=== PATIENT | male | born 1995 | race Caucasian/White ===

== ENCOUNTER 2019-08-17 15:28 | Emergency (ER) | payer OTHER ==
[~2019-08-17] VITALS: Ht 177.8 cm; Wt 90.7 kg
[2019-08-17 15:30] VITALS: BP 148/93
--- NOTE | 2019-08-17 15:30 | NUR ---
ED Nurse Note: Patient arrived to ED from sober living. Staff state that patient had a witnessed seizure that lasted approximately 2 min. They state that patient is on a detox regimen from opiates and that he has been faking to get more opiate medications to decrease his withdrawal symptoms. Patient is verbally hostile, demanding that he receive opiates from the ED physicians. Patient is AxO x 4, states he is having seizures because he is not receiving enough withdrawal medication. No complaints of pain. Patient on the site monitor, bed in lowest position. Addendum: 08/17/19 at 1951 by HEBERT Amendment undone in EDM - 08/17/19 at 1953 by HEBERT ED Nurse Note: Seizure precautions put into place. Side rails padded, all belongings placed away from patient for safety. No s/s of drowsiness or altered consciousness. No evidence of trauma from fall or other injury from previous seizure. Patient states he did not fall or injure himself earlier when he had the seizure.
[2019-08-17] MEDS ORDERED: LORazepam Inj 2mg/ml 1ml IV ONE ×2 (16:00→17:15)
[2019-08-17 16:41] LABS: EOSINOPHILS % (AUTO) 2.2 % (0.0-3.0); HEMATOCRIT 41.3 % (42.0-52.0); HEMOGLOBIN 13.6 G/DL (14.2-18.0); MEAN CORPUSCULAR VOLUME 85 FL (80-99); MONOCYTES % (AUTO) 7.1 % (1.0-10.0); NEUTROPHILS % (AUTO) 48.6 % (45.0-75.0); PLATELET COUNT 240 K/UL (150-450); RED BLOOD COUNT 4.86 M/UL (4.70-6.10); RED CELL DISTRIBUTION WIDTH 9.6 % (11.6-14.8); WHITE BLOOD COUNT 6.7 K/UL (4.8-10.8)
[2019-08-17 16:51] LABS: ANION GAP 7 mmol/L (5-15); BLOOD UREA NITROGEN 14 mg/dL (7-18); CALCIUM 8.5 MG/DL (8.5-10.1); CARBON DIOXIDE 28 MMOL/L (21-32); CHLORIDE 106 MMOL/L (98-107); CREATININE 1.1 MG/DL (0.55-1.30); POTASSIUM 3.8 MMOL/L (3.5-5.1); SODIUM 141 MMOL/L (136-145)
--- NOTE | 2019-08-17 16:51 | NUR ---
ED Nurse Note: sussy leigh (caregiver) - call Coby HARRELL in regards to discharge for pt. [phone]
[2019-08-17 17:01] LABS: ALANINE AMINOTRANSFERASE 95 U/L (12-78); ALBUMIN 3.4 G/DL (3.4-5.0); ALKALINE PHOSPHATASE 40 U/L (46-116); ASPARTATE AMINO TRANSFERASE 46 U/L (15-37); BILIRUBIN,TOTAL 0.4 MG/DL (0.2-1.0)
[2019-08-17 17:15] VITALS: BP 148/93
[2019-08-17] MEDS ORDERED: ATIVAN1 MG ORAL (17:15)
--- NOTE | 2019-08-17 17:15 | NUR ---
ED Nurse Note: Patient cleared for DC by Dr. Ambrose. Patient AxO x 4, no s/s of acute distres. IV removed, ID band removed. Rx given to patient. Patient walks with steady gait and has all belongings.
--- NOTE | 2019-08-17 23:02 | Emergency Room Report ---
History of Present Illness General Chief Complaint: Seizure Source: Patient Present Illness HPI 23-year-old male presents ED status post seizure. Coming from rehab facility. Seizure witnessed by staff. Full tonic-clonic. Lasted for 2 minutes. No reported head injury. Upon arrival patient states that he is withdrawing from benzos and alcohol. Does not take seizure medications. Feels anxious at this time. Denies any headaches, nausea or vomiting. Denies neck stiffness fevers or chills. No other aggravating relieving factors. Denies any other associated symptoms Allergies: Coded Allergies: AZITHROMYCIN (Verified Allergy, Unknown, 08/17/19) LEVETIRACETAM (Verified Allergy, Unknown, 08/17/19) Patient History Past Medical History: none Past Surgical History: none Pertinent Family History: none Social History: Reports: alcohol use, drug use; Denies: smoking Immunizations: UTD Reviewed Nursing Documentation: PMH: Agreed; PSxH: Agreed Nursing Documentation-PMH Past Medical History: No History, Except For Hx Seizures: Yes Review of Systems All Other Systems: negative except mentioned in HPI Physical Exam Vital Signs Date Time Temp Pulse Resp B/P (MAP) Pulse Ox O2 Delivery O2 Flow Rate FiO2 08/17/19 15:23 98.6 104 18 148/93 (111) 99 Room Air Sp02 EP Interpretation: reviewed, normal General Appearance: no apparent distress, alert, GCS 15, non-toxic Head: normocephalic, atraumatic Eyes: bilateral eye normal inspection, bilateral eye PERRL ENT: hearing grossly normal, normal pharynx, no angioedema, normal voice Neck: full range of motion, supple/symm/no masses Respiratory: chest non-tender, lungs clear, normal breath sounds, speaking full sentences Cardiovascular #1: regular rate, rhythm, no edema Cardiovascular #2: 2+ carotid (R), 2+ carotid (L), 2+ radial (R), 2+ radial (L) , 2+ dorsalis pedis (R), 2+ dorsalis pedis (L) Gastrointestinal: normal bowel sounds, non tender, soft, non-distended, no guarding, no rebound Rectal: deferred Genitourinary: normal inspection, no CVA tenderness Musculoskeletal: back normal, normal range of motion, gait/station normal, non- tender Neurologic: alert, motor strength/tone normal, oriented x3, sensory intact, responsive, speech normal Psychiatric: judgement/insight normal, memory normal, no suicidal/homicidal ideation, anxious Reflexes: 3+ bicep (R), 3+ bicep (L), 3+ tricep (R), 3+ tricep (L), 3+ knee (R) , 3+ knee (L) Skin: no rash Lymphatic: no adenopathy Medical Decision Making Diagnostic Impression: Primary Impression: Seizure Additional Impression: Substance abuse ER Course Hospital Course 23-year-old M presents to ED status post seizure. h/o substance abuse Differential diagnosis includes- breakthrough seizure, alcohol abuse, noncompliance with medication Clinical course Patient placed on stretcher. Initial history and physical I ordered labs, IV fluids, ativan Labs-electrolytes okay, no leukocytosis, hemoglobin/hematocrit stable. Utox + multiple substance EKG - NSR, no acute ischemic changes interpreted by me Discussed findings with patient. Awake alert oriented x3. Patient states he was put on a Valium taper but states that he was being tapered too abruptly. I agreed to provide some Ativan as needed for a few days to supplement his valium taper. Rehab facility staff at bedside. Agreed to take him back. Safe for discharge for close outpatient follow-up. Diagnosis - seizure, substance abuse stable and discharged to home with Rx Ativan. Followup with PMD. Return to ED if symptoms recur or worsen Labs Test 08/17/19 15:41 08/17/19 16:05 Urine Opiates Screen Negative (NEGATIVE) Urine Barbiturates Screen Positive (NEGATIVE) Phencyclidine (PCP) Screen Negative (NEGATIVE) Urine Amphetamines Screen Positive (NEGATIVE) Urine Benzodiazepines Screen Positive (NEGATIVE) Urine Cocaine Screen Negative (NEGATIVE) Urine Marijuana (THC) Screen Positive (NEGATIVE) White Blood Count 6.7 K/UL (4.8-10.8) Red Blood Count 4.86 M/UL (4.70-6.10) Hemoglobin 13.6 G/DL (14.2-18.0) Hematocrit 41.3 % (42.0-52.0) Mean Corpuscular Volume 85 FL (80-99) Mean Corpuscular Hemoglobin 28.0 PG (27.0-31.0) Mean Corpuscular Hemoglobin Concent 33.0 G/DL (32.0-36.0) Red Cell Distribution Width 9.6 % (11.6-14.8) Platelet Count 240 K/UL (150-450) Mean Platelet Volume 6.9 FL (6.5-10.1) Neutrophils (%) (Auto) 48.6 % (45.0-75.0) Lymphocytes (%) (Auto) 41.0 % (20.0-45.0) Monocytes (%) (Auto) 7.1 % (1.0-10.0) Eosinophils (%) (Auto) 2.2 % (0.0-3.0) Basophils (%) (Auto) 1.0 % (0.0-2.0) Sodium Level 141 MMOL/L (136-145) Potassium Level 3.8 MMOL/L (3.5-5.1) Chloride Level 106 MMOL/L (98-107) Carbon Dioxide Level 28 MMOL/L (21-32) Anion Gap 7 mmol/L (5-15) Blood Urea Nitrogen 14 mg/dL (7-18) Creatinine 1.1 MG/DL (0.55-1.30) Estimat Glomerular Filtration Rate > 60 mL/min (>60) Glucose Level 116 MG/DL (74-106) Calcium Level 8.5 MG/DL (8.5-10.1) Total Bilirubin 0.4 MG/DL (0.2-1.0) Aspartate Amino Transf (AST/SGOT) 46 U/L (15-37) Alanine Aminotransferase (ALT/SGPT) 95 U/L (12-78) Alkaline Phosphatase 40 U/L (46-116) Total Protein 6.8 G/DL (6.4-8.2) Albumin 3.4 G/DL (3.4-5.0) Globulin 3.4 g/dL Albumin/Globulin Ratio 1.0 (1.0-2.7) Salicylates Level 2.6 ug/mL (2.8-20) Acetaminophen Level < 2 MCG/ML (10-30) Serum Alcohol < 3 mg/dL EKG Diagnostic Results Rate: normal Rhythm: NSR ST Segments: no acute changes ASA given to the pt in ED: No Rhythm Strip Diag. Results EP Interpretation: yes Rhythm: NSR, no PVC's, no ectopy Last Vital Signs Date Time Temp Pulse Resp B/P (MAP) Pulse Ox O2 Delivery O2 Flow Rate FiO2 08/17/19 17:15 98.6 18 148/93 99 Room Air 08/17/19 15:30 105 Status: improved Disposition: HOME, SELF-CARE Condition: Stable Scripts Lorazepam* (ATIVAN*) 1 Mg Tablet 1 MG ORAL THREE TIMES A DAY, #10 TAB Prov: Neftaly Ambrose MD 08/17/19 Ref[facility]: [facility] Patient Instructions: Seizure, Adult, [id number] Neftaly Ambrose MD Aug 17, 2019 23:02
== END 2019-08-17 17:15 | disposition home or self-care (01) ==
LOC: EDBD 15:28 → EMR 17:05
DX: G40.909 Epilepsy, unspecified, not intractable, without status epilepticus (principal); F19.10 Other psychoactive substance abuse, uncomplicated; Z88.8 Allergy status to other drugs, medicaments and biological substances
CPT/HCPCS: 36415; 80053; 80307; 85025; 96361; 96374; 96376; 99284; G0480; J7030